=== PATIENT | male | born 1985 | race Caucasian/White ===

== ENCOUNTER 2017-02-13 13:50 | Emergency (ER) | payer OTHER ==
[2017-02-13 16:09] LABS: RED BLOOD COUNT 4.67 M/UL (4.20-5.50); WHITE BLOOD COUNT 8.2 K/UL (4.5-11.0)
[2017-02-13 16:24] LABS: BUN/CREATININE RATIO 23 (0-10)
== END 2017-02-13 21:30 | disposition home or self-care (01) ==
LOC: ER1 13:50
PROVIDERS: Emergency Medicine
DX: L02.216 Cutaneous abscess of umbilicus (principal); I10 Essential (primary) hypertension
CPT/HCPCS: 36415; 80053; 81001; 83690; 85025; 96361; 96374; 99284; J1335; J7030; J7050; Q9962